=== PATIENT | male | born 2000 | race Caucasian/White ===

== ENCOUNTER 2025-01-28 09:06 | Emergency (ER) | payer OTHER, SELFPAY ==
[2025-01-28 09:18] VITALS: BP 137/80; PULSE 74; RESP 16; TEMP 35.6; O2SAT 97; BMI 22.9
--- NOTE | 2025-01-28 11:13 | ED.GENADULT ---
HPI - General Adult General Date Seen: 01/28/25 Chief complaint: Eye Problems Stated complaint: chemical on right eye Time Seen by Provider: 01/28/25 10:28 History of Present Illness HPI narrative: This is a pleasant generally healthy 24-year-old male presenting to the ER today with right eye irritation and pain after a chemical splash injury that occurred at work. 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 He was wearing eye protection but accidentally got splashed by [employer] just prior to arrival. Upon feeling splash she noted irritation so he immediately irrigated his own eye. He had fresh cool water and standby so irrigated his eye for almost half an hour. He presents to the ER because he still has some irritation of his eyelids. Vision is slightly blurry but not really much more blurry than normal. He normally wears glasses but no contacts. He is not sure of his last tetanus shot. Related Data Home Medications ?Medication ?Instructions ?Recorded ?Confirmed No Known Home Medications 01/28/25 01/28/25 Allergies Allergy/AdvReac Type Severity Reaction Status Date / Time No Known Drug Allergies Allergy Verified 01/28/25 09:26 Exam Narrative: Exam Narrative: Constitutional: Appears well-developed and well-nourished. Active. Non-toxic appearing. HENT: Head: Atraumatic. No signs of injury. Nose: No nasal discharge. Mouth/Throat: Mucous membranes are moist. Pharynx is normal. Tonsils symmetric. Uvula midline. Airway patent. Eyes: Visual acuity (R): 20/20, (L): 20/20 PERRLA, EOMI. No exophthalmos or enophthalmos. Mild irritation of the lid conjunctiva of the right eye. Also mild erythema of the bulbar conjunctiva. No purulent drainage. No foreign body. Slit Lamp Exam: Lids: No foreign body noted in detailed exam upper and lower lids/margins Anterior Chamber: No cells or flare, No hyphema. No hypopyon. Cornea: No foreign body. Fluorescein staining: Negative. Neck: Normal range of motion. Neck supple. No adenopathy. No stridor. Cardiovascular: Normal rate and regular rhythm. Pulmonary/Chest: Effort normal. No stridor. No respiratory distress. Musculoskeletal: Normal range of motion. No edema. No tenderness. No deformity. Neurological: Alert. Normal strength. No cranial nerve deficit or sensory deficit. Coordination normal. GCS eye subscore is 4. GCS verbal subscore is 5. GCS motor subscore is 6. Skin: Skin is warm. No rash noted. Const: Vital Signs, click to edit/add: Vital Signs - 24 hr 01/28/25 09:18 Temperature 96.0 F L Pulse Rate [Right Pulse Oximeter] 74 Respiratory Rate 16 Blood Pressure [Ri ght Upper Arm] 137/80 Pulse Oximetry 97 Oxygen Delivery Me thod Room Air Course Vital Signs Vital signs: Initial Vital Signs Temperature 96.0 F L 01/28/25 09:18 Temperature Source Temporal Artery Scan 01/28/25 09:18 Pulse Rate 74 01/28/25 09:18 Respiratory Rate 16 01/28/25 09:18 Blood Pressure 137/80 01/28/25 09:18 Blood Pressure Mean 99 01/28/25 09:18 Blood Pressure Position Sitting 01/28/25 09:18 Pulse Oximetry 97 01/28/25 09:18 Oxygen Delivery Method Room Air 01/28/25 09:18 Vital Signs Temperature 96.0 F L 01/28/25 09:18 Pulse Rate 74 01/28/25 09:18 Respiratory Rate 16 01/28/25 09:18 Blood Pressure 137/80 01/28/25 09:18 Pulse Oximetry 97 01/28/25 09:18 Oxygen Delivery Method Room Air 01/28/25 09:18 Temperature 96.0 F L 01/28/25 09:18 Pulse Rate 74 01/28/25 09:18 Respiratory Rate 16 01/28/25 09:18 Blood Pressure 137/80 01/28/25 09:18 Pulse Oximetry 97 01/28/25 09:18 Oxygen Delivery Method Room Air 01/28/25 09:18 Medical Decision Making MDM Narrative Medical decision making narrative: This patient presents with right eye irritation and discomfort after chemical splash injury that occurred at work just prior to arrival. The patient immediately irrigated his eye out for almost half an hour. He does have signs of irritation. Fortunately visual acuity is normal and symmetric with the other eye. PH here is 7. Fluorescein exam shows staining shows no uptake or signs of keratitis or abrasion.. No foreign bodies in eyes or lids noted. No corneal ulcers. I cannot identify any retained contact or corneal foriegn body at this time. No signs of retinal abnormalities, dendritic lesions, open globe, acute glaucoma, or other serious eye disease. No signs of anterior chamber involvement such as endopthalmitis at this point. No sign of bacterial conjunctivitis. Lids are mildly irritated but no foreign bodies or other signs of serious burn or injury.. PLAN: 1. Topical antibiotics 2. Pain management with orals meds 3. Close f/u of eye clinic and/or return if worsening symptoms Discharge Plan Discharge Clinical Impression: Chemical injury of eye Patient Disposition: Home, Self-Care Condition: Stable Instructions: Chemical Eye [place] (ED) Additional Instructions: As we discussed, please return to the ER right away if you have worsening pain, pus draining from your eye, worsening vision, or any concerns If your eye is not dramatically improved within 24 hours, please recheck with your eye doctor or come back to the ER. To prevent infections please start on the eyedrops (gentamicin drops 2 drops to your right eye every 6 hours for 3 days) Prescriptions: No Action No Known Home Medications Stand Alone Forms: [facility] Info Instructions
[2025-01-28] MEDS: TETRACAINE 0.5% OPHTH 1 DROP EYE-BOTH (11:30)
[2025-01-28] MEDS: FLUORESCEIN SODIUM TOPICAL STRIP 1 STRIP EYE-BOTH (11:30)
== END 2025-01-28 11:28 | disposition home or self-care (01) ==
LOC: ED 11:32
PROVIDERS: Emergency Provider Emergency Medicine
DX: H57.11 Ocular pain, right eye (principal); T26.91XA Corrosion of right eye and adnexa, part unspecified, initial encounter; Y99.0 Civilian activity done for income or pay; Z77.098 Contact with and (suspected) exposure to other hazardous, chiefly nonmedicinal, chemicals; Z23 Encounter for immunization
CPT/HCPCS: 90471; 99282; 99283; 99284; A9270